=== PATIENT | female | born 1985 | race Caucasian/White ===

== ENCOUNTER 2016-09-28 08:21 | Inpatient (IN) | payer OTHER ==
[2016-09-28] MEDS ORDERED: LR 1,000 ML IV PRN (08:44)
[2016-09-28] MEDS ORDERED: TERBUTALINE SULFATE 1 MG/ML VIAL IV PRN (08:44)
[2016-09-28] MEDS ORDERED: OXYTOCIN/RINGERS LACTATE 1,000 ML IV PRN (08:44)
--- NOTE | 2016-09-28 08:48 | OBPROG ---
OBG Progress Note Assessment/Plan: Assessment: cat 1 fhr pain well managed exam /-1 intact bow julieta regularly since 529 Plan:expectant management of labor 09/28/16 08:46 Subjective: Doing well. regular contractions since 529. Denies rom. Feeling positive movement Requesting nitrous for pain relief - SVE Dilation (cm): 9 Effacement (%): 100 Station: -1 Current Contraction Pattern: Regular FHR (bpm): 125 FHR Pattern Variability: Moderate FHR Category: 1 Membranes: Intact ICD10 Worksheet Patient Problems: Problems Problem Status Onset term labor Acute
[2016-09-28 09:09] LABS: % IMMATURE GRANULYOCYTES 1.2 % (0.0-1.1); ADD DIFF? NO; ADD MORPH? NO; ADD SCAN? NO; ATYPICAL LYMPHOCYTE FLAG 0 (0-99); FRAGMENT RBC FLAG 0 (0-99); HEMATOCRIT 38.8 % (38.0-47.0); HEMOGLOBIN 13.4 g/dL (12.6-16.3); LEFT SHIFT FLG 10 (0-99); LIPEMIA HEMOLYSIS FLAG 90 (0-99); MEAN CELL HEMOGLOBIN 30.5 pg (27.9-34.1); MEAN CELL HEMOGLOBIN CONCENTR. 34.5 g/dL (32.4-36.7); MEAN CELL VOLUME 88.2 fL (81.5-99.8); MEAN PLATELET VOLUME 9.5 fL (8.7-11.7); PLATELET CLUMPS FLAG 0 (0-99); PLATELET COUNT 288 10^3/uL (150-400); RED CELL DISTRIBUTION WIDTH 13.7 % (11.5-15.2)
--- NOTE | 2016-09-28 09:35 | GHP ---
DATE OF ADMISSION: 09/28/2016 The patient is a 31-year-old comes in with complaint of regular contractions since 5:30 on 09/28/2016. Patient was a transfer of care at late gestation from another practice, has been receiving care since 23 weeks from [facility]. Today on admission, positive movement, positive bloody show, advanced dilatation of labor, regular contractions. Admission to labor and delivery. ALLERGY: sulfa hives MEDICAL HX: Patient has a history of HSV, has been taking Valtrex since 36 weeks. Patient is Rh negative. Received RhoGAM on 07/26/2016. 2, para 0, A1, 31-year-old with an EDC of 10/08/2016 which makes her 38-4/7 gestational age SURGICAL HISTORY: Benign. gynecological history: previous abnormal pap. OCP use from 17 years to . Previous cervical polyp. Previous leep. HISTORY: Benign. Previous TAB. at 17 yo. Routine medications PNV, fish oil. irregular use of ventolin inhaler LABS: Patient is O negative antibody positive. HIV negative. rubella immune, hepatis negative, gc/ct negative. Pap wnl GBS negative. Thyroid was within normal limits. On 07/15/2016, 1-hour GTT was 114. All other lab work is not available at this time. Will get a more comprehensive FAUSTO. ASSESSMENT: Patient is awake, alert, oriented x3. Lungs are clear bilaterally. Bowel sounds are positive in all 4 quadrants. DTRs are 1+ bilaterally. Homans sign is negative. Having regular contractions. q2-3 minutes apart. With intial exam intact membranes. 9 cm admission exam. PLAN OF CARE: 1. Patient is GBS negative. 2. Nitrous oxide for pain assistance. 3. Expectant management of labor. /[id number]/MODL MTDD
--- NOTE | 2016-09-28 09:57 | OBPROG ---
OBG Progress Note Assessment/Plan: Assessment: cat 1 fhr pain well managed exam 10/100/+2 intact bow julieta regularly since 0530 feeling pushy beginning to push Plan:expectant management of labor 09/28/16 08:46 09/28/16 09:57 Subjective: Doing well. Feeling greater pressure Objective: 09/28/16 08:55 Patient ABO/Rh O NEGATIVE 09/28/16 08:55 - SVE Dilation (cm): 10 Effacement (%): 100 Station: +2 Current Contraction Pattern: Regular FHR (bpm): 135 FHR Pattern Variability: Moderate Membranes: SROM Amniotic Fluid Color: Clear ICD10 Worksheet Patient Problems: Problems Problem Status Onset term labor Acute
[2016-09-28] MEDS ORDERED: LIDOCAINE 1% 30 ML SDV ONE ×2 (11:05→16:24)
[2016-09-28] MEDS ORDERED: MISOPROSTOL 200 MCG TAB ONE (11:06)
[2016-09-28] MEDS ORDERED: ACETAMINOPHEN 325 MG TAB PO PRN (12:11)
[2016-09-28] MEDS ORDERED: HYDROCORTISONE 0.5% CREAM TP PRN (12:11)
[2016-09-28] MEDS ORDERED: SIMETHICONE 80 MG TAB CHEW PO PRN (12:11)
[2016-09-28] MEDS ORDERED: HYDROCODONE/APAP 5/325 TAB PO PRN (12:11)
--- NOTE | 2016-09-28 12:15 | OBPROC ---
- Labor and Delivery Onset of Contractions Date: 09/28/16 Onset of Contractions Time: 05:30 Onset of Contractions Type: Spontaneous Rupture of Membranes Date: 09/28/16 Rupture of Membranes Time: 09:35 Rupture of Membranes Type: Spontaneous Amniotic Fluid Color: Clear Dilation Complete Time: 09:24 Delivery Type: Spontaneous Placenta Delivery Date: 09/28/16 Placenta Delivery Time: 11:27 Episiotomy/Laceration: 2nd Degree Repair: 3-0, Vicryl EBL: 450 Complications: None - Medications Labor Augmentation/Induction Meds Used: None Anesthesia: Local (Specify) - [place] Info Infant A Delivery Date: 09/28/16 Delivery Time: 11:20 Sex of Infant: Female Score (1 Min): 7 Score (5 Min): 9
[2016-09-28] MEDS: IBUPROFEN 600 MG TAB PO PRN ×2 (12:50→20:39)
[2016-09-28 21:30] VITALS: RESP 16
[2016-09-28] MEDS ORDERED: CALCIUM CARBONATE 500 MG CHEWABLE TAB PO PRN (21:41)
[2016-09-29] MEDS: IBUPROFEN 600 MG TAB PO PRN ×3 (04:54→17:40)
--- NOTE | 2016-09-29 08:28 | SOAPPROG ---
SOAP Progress Note Assessment/Plan: Assessment: ppd# 1 s/p uncomplicated post course breast feeding rh negative - baby rh positive - rhogam given Plan: routine post care 09/29/16 08:26 Subjective: patient is doing well. working on feeding. pain is well controlled. normal lochia. denies headache and changes in vision. ambulating. voiding without difficulty. mood stable. Objective: Vital Signs Temp Pulse Resp BP Pulse Ox 36.7 C 83 16 123/72 H 97 09/28/16 20:40 09/28/16 20:40 09/28/16 20:40 09/28/16 20:40 09/28/16 20:40 Laboratory Results 09/28/16 08:55 09/28/16 09/29/16 09/30/16 05:59 05:59 05:59 Output Total 900 Balance -900 Physical Exam - Physical Exam General Appearance: WD/WN, alert, no apparent distress Respiratory: chest non-tender, lungs clear, normal breath sounds Cardiac/Chest: normal peripheral pulses, regular rate, rhythm Abdomen: normal bowel sounds, non-tender, soft, other (fundus firm and non tender) Skin: normal color, warm/dry Extremities: normal range of motion, non-tender, normal inspection, normal capillary refill Neuro/Psych: no motor/sensory deficits, alert, normal mood/affect, oriented x 3 ICD10 Worksheet Patient Problems: Problems Problem Status Onset term labor Acute
[2016-09-29] MEDS: DOCUSATE SODIUM 100 MG CAP PO PRN (11:05)
[2016-09-30] MEDS: IBUPROFEN 600 MG TAB PO PRN (06:07)
--- NOTE | 2016-09-30 08:09 | SOAPPROG ---
SOAP Progress Note Assessment/Plan: Assessment: nipples intact fundus ff@u scant rubra lochia pain well managed voiding without difficulty has had BM Plan:discharge to home with instruction fu 4 weeks and 6 weeks, discussed , rest, depression, pain management, ss infection, pericare, contraception, 09/28/16 08:46 09/28/16 09:57 09/30/16 08:05 Subjective: Doing well ready to go home. Denies difficulties Objective: Vital Signs Temp Pulse Resp BP Pulse Ox 36.9 C 95 16 107/65 91 L 09/29/16 21:04 09/29/16 21:04 09/29/16 21:04 09/29/16 21:04 09/29/16 21:04 Laboratory Results 09/28/16 08:55 09/29/16 09/30/16 10/01/16 05:59 05:59 05:59 Output Total 900 Balance -900 - Time Spent With Patient Time Spent With Patient: 15 minutes - Pending Discharge Pending Discharge Date: 09/30/16 Pending Discharge Time: 11:00 Physical Exam - Physical Exam General Appearance: WD/WN, alert, no apparent distress Respiratory: chest non-tender, lungs clear, normal breath sounds Cardiac/Chest: regular rate, rhythm Abdomen: normal bowel sounds, other (FF@u) Pelvic Exam: vaginal bleeding (scant rubra lochia) Skin: normal color, warm/dry Extremities: normal range of motion, Robert's sign (negative bilaterally dtr1+ bilaterally) Neuro/Psych: no motor/sensory deficits, alert, normal mood/affect, oriented x 3 ICD10 Worksheet Patient Problems: Problems Problem Status Onset term labor Acute
[2016-09-30] MEDS: DOCUSATE SODIUM 100 MG CAP PO PRN (08:23)
[2016-09-30 09:35] VITALS: BP 110/64; PULSE 80; TEMP 98.6; O2SAT 96
== END 2016-09-30 12:10 | disposition home or self-care (01) | DRG 774 ==
LOC: FLD 08:21 → FOB 15:38
PROVIDERS: ADMIT Advanced Practice Midwife; ATTEND Advanced Practice Midwife
PROC: 10E0XZZ Delivery of Products of Conception, External Approach (ICD-10-PCS; principal; 2016-09-28)
DX: O70.1 Second degree perineal laceration during delivery (principal); O98.52 Other viral diseases complicating childbirth; Z37.0 Single live birth; Z3A.38 38 weeks gestation of pregnancy; B00.9 Herpesviral infection, unspecified
CPT/HCPCS: J2590

== ENCOUNTER → 2016-10-22 | Outpatient (CLI) | payer OTHER | LOC: FLACT 12:58 | PROVIDERS: ATTEND Advanced Practice Midwife | DX: O92.13 Cracked nipple associated with lactation (principal) | CPT/HCPCS: G0463 ==

== ENCOUNTER → 2016-12-05 | Outpatient (CLI) | payer OTHER | LOC: FLAB 09:46 | PROVIDERS: ATTEND Advanced Practice Midwife | DX: O92.79 Other disorders of lactation (principal) | CPT/HCPCS: G0463 ==